=== PATIENT | female | born 1970 | race Caucasian/White ===

== ENCOUNTER → 2020-01-27 08:15 | Outpatient (BNVA) | payer MEDICAID, SELFPAY | PROVIDERS: PCP Internal Medicine; Visit Provider Surgery | DX: Z86.000 Personal history of in-situ neoplasm of breast (principal); Z90.13 Acquired absence of bilateral breasts and nipples; Z98.82 Breast implant status | CPT/HCPCS: 99212 ==

== ENCOUNTER → 2021-04-26 15:33 | Outpatient (BNVA) | payer MEDICAID, SELFPAY | PROVIDERS: PCP Internal Medicine; Referring Provider Internal Medicine; Visit Provider Surgery | DX: Z86.000 Personal history of in-situ neoplasm of breast (principal) | CPT/HCPCS: 99212 ==

== ENCOUNTER 2021-06-08 07:23 | Outpatient (REF) | payer MEDICAID, SELFPAY ==
--- NOTE | ~2021-06-08 | MR_ITS ---
EXAMINATION: MR BREAST WITHOUT CONTRAST, BILATERAL CLINICAL INFORMATION: History of right breast discomfort. History of bilateral mastectomy with implant reconstruction. COMPARISON: Breast MRI 02/20/2019, 07/16/2017 TECHNIQUE: Utilizing a 1.5T scanner and dedicated breast coil, T1 and T2-weighted sequences without fat-saturation were obtained in the sagittal plane. An axial water suppressed sequence through both breasts was obtained. A STIR sequence was also obtained through both breasts in the axial plane without suppression of the silicone signal. Finally, a sagittal STIR sequence with the suppression of silicone signal was obtained. FINDINGS: LEFT BREAST: Retropectoral silicone implant appears intact. No MR specific evidence for intracapsular or extraocular rupture. No free fluid surrounding the implant. Postsurgical changes noted in the axillary region. The soft tissues of the left chest wall on these noncontrast images are unremarkable. RIGHT BREAST: Retropectoral silicone implant is in place. T2 hyperintense material is noted along the posterior aspect of the implant within the soft tissue capsule. This is consistent with free fluid. The implant itself appears intact. The soft tissues of the right chest wall appear grossly unremarkable on these noncontrast images. Within the inferior aspect of the axilla there is a rounded lymph node measuring up to 1.07 size. This appears slightly more prominent compared to prior studies. Given the history of previous right-sided implant rupture this lymph node may contain a small amount of silicone. The cortex does not appear to be thickened. The axillary lymph nodes are essentially morphologically normal. No suspicious internal mammary lymph nodes are seen. The imaged portions of the chest and upper abdomen are grossly unremarkable. MR/MR breast BI wo con IMPRESSION: 1. Limited noncontrast study. 2. Intact implants bilaterally. Persistent fluid surrounding the right breast implants little changed compared to the most recent previous examination. ASSESSMENT: LEFT BREAST: BI-RADS 2 - Benign findings. RIGHT BREAST: BI-RADS 2 - Benign findings. RECOMMENDATIONS: Clinical follow-up..
== END 2021-06-08 07:24 | disposition home or self-care (01) ==
LOC: HO.MRI 07:23
PROVIDERS: PCP Internal Medicine; Visit Provider Surgery
DX: Z85.3 Personal history of malignant neoplasm of breast (principal); Z98.82 Breast implant status
CPT/HCPCS: 77047

== ENCOUNTER 2022-10-06 10:03 | Outpatient (AMB) | payer MEDICAID, SELFPAY ==
[2022-10-06 10:17] VITALS: BP 123/70; PULSE 94; BMI 28.4
--- NOTE | 2022-10-06 10:17 | MHC.OFFVIS ---
Intake Vital Signs 10/06/22 10:17 Height 5 ft 3.75 in Weight 164 lb 4 oz BMI 28.4 BP 123/70 Blood Pressure Location Lt brachial Position Sitting Pulse 94 Intake Visit Reasons: yearly breast exam (overdue since 06/08) Intake Note: Patient is seen in office for yearly breast exam. 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 She has a previous patient of Dr. Robles diagnosed with DCIS of the left breast after finding a lump in the upper outer aspect on self examination in 2012. She subsequently underwent BRCA testing which was negative on 11/14/2012. Patient is adopted in therefore as no information on her family history. Patient subsequently decided to proceed to a bilateral mastectomy with sentinel node biopsy followed by immediate reconstruction on 01/14/2013 (Drs. Robles/Reji). 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 A single sentinel node was removed on each side and was negative for metastatic disease. No carcinoma was identified on the right side. The patient was identified as having implants that place her at higher risk for leakage. In addition the implants have a rough surface texture that has been associated with a higher risk of aggressive lymphoma. She had a bilateral MRI performed on 07/17/2017 which demonstrated a ruptured implant on the right side and intact implant on the left. The ruptured implant was removed and replaced in September 2017. She developed an infection following the surgery which was managed with antibiotics for approximately 6 weeks. A follow-up MRI on 06/08/2021 revealed intact implants bilaterally. Persistent fluid surrounding the right breast implant is little changed compared to the most recent previous examination (BI-RADS 2 bilaterally). She is now due for a annual breast MRI. [facility] Medical History History of left breast cancer History of removal of breast implant Surgical History History of arthroplasty of right shoulder History of arthroscopy of right knee History of bilateral mastectomy (2012) History of reconstruction of both breasts (07/2013) Family History Other Adopted Social History Alcohol intake: never Patient Tobacco Use Status: Never used Tobacco Review of Systems Const All systems reviewed & are unremarkable except as noted in HPI and below Physical Exam Vital Signs: Last Vital Signs Pulse 94 10/06/22 10:17 BP 123/70 10/06/22 10:17 BMI result Body Mass Index 28.4 Const General: healthy appearing and well developed Nutritional Appearance: well nourished Orientation/consciousness: patient oriented x3 Limitations: no limitations HEENT Head: Yes normocephalic and Yes atraumatic Ears: hearing grossly normal bilaterally Neck Neck: Yes normal visual inspection, Yes no lymphadenopathy, Yes trachea midline and Yes supple Chest Other: Bilateral mastectomies with reconstruction with bilateral implants and nipple reconstruction. Palpation of the right side does reveal an area of fullness in the lower outer quadrant which appears to be above the implant the implant capsule is palpable in the upper outer quadrant. No palpable masses noted in the overlying skin or subcutaneous tissue. No enlarged lymph nodes are palpable on the right side. Left breast reveals no subcutaneous or cutaneous nodules and no enlarged lymph nodes. No areas redness or discharge. Resp Effort & Inspection: normal respiratory effort, no audible wheezes, no cough and no respiratory distress GI Inspection: Yes normal to inspection Skin General skin exam: no rashes or lesions noted Neuro General: patient oriented x3 Extrem General: Yes full ROM and Yes no clubbing, cyanosis or edema Psych Appearance: grossly normal Assessment & Plan Assessment & Plan (1) History of left breast cancer: Comment: DCIS 2012 Code(s): Z85.3 - Personal history of malignant neoplasm of breast Plan 52-year-old female patient, former patient of Dr. Robles returning for a yearly follow-up examination after undergoing bilateral mastectomies for a left breast ductal carcinoma in situ in 2012. She developed leakage from the implant on the right side and subsequently underwent removal with placement of a new implant. This was complicated by a wound infection which required prolonged antibiotics. She is currently doing well and examination today revealed no suspicious findings in either side. I recommended a follow-up MRI without contrast to evaluate the implant in surrounding tissue. She expressed understanding and agrees with the plan. She will return in 1 year for follow-up examination. She is welcome to call sooner for any new concerns. Orders: Orders MR breast BI wo/w con 10/06/22 Z85.3 - Personal history of malignant neoplasm of breast, Z98.82 - Breast implant status Coding Level of Care Code Est Pt Level 3 (90228) Diagnoses History of left breast cancer Z85.3
== END 2022-10-06 10:33 | disposition home or self-care (01) ==
PROVIDERS: PCP Internal Medicine; Visit Provider Surgery
DX: Z85.3 Personal history of malignant neoplasm of breast (principal); Z90.13 Acquired absence of bilateral breasts and nipples
CPT/HCPCS: 99213

== ENCOUNTER → 2022-10-06 10:03 | Outpatient (BNVA) | payer MEDICAID, SELFPAY | PROVIDERS: PCP Internal Medicine; Visit Provider Surgery | DX: Z86.000 Personal history of in-situ neoplasm of breast (principal); Z90.13 Acquired absence of bilateral breasts and nipples | CPT/HCPCS: 99212 ==

== ENCOUNTER 2022-12-25 13:25 | Outpatient (REF) | payer MEDICAID, SELFPAY ==
--- NOTE | ~2022-12-25 | MR_ITS ---
EXAMINATION: MR BREAST WITHOUT AND WITH CONTRAST, BILATERAL CLINICAL INFORMATION: 52-year-old status post bilateral mastectomy with silicone implant reconstruction for bilateral cancer in 2013. COMPARISON: MRIs from 06/08/2021, 02/20/2019, 02/07/2019 and 07/16/2017. TECHNIQUE: Imaging was performed with a dedicated breast coil. Prior to the administration of contrast, bilateral axial T1 and bilateral axial T2 weighted sequences were obtained. After the uneventful administration of?7 mL of Gadavist, dynamic contrast-enhanced VIBRANT series through the breasts in the axial plane were performed. Subtracted images were performed and reviewed. A delayed sagittal sequence through both breasts was acquired. Additionally, CAD post-processing, including maximum intensity projections, 3-D reconstructions and kinetic analysis, were performed an independent workstation and reviewed by the interpreting radiologist is a portion of this exam. FINDINGS: The patient's fibroglandular tissue demonstrates moderate background enhancement. LEFT BREAST: There is a retropectoral silicone implant without evidence of intracapsular or extracapsular rupture or free silicone. The surrounding breast tissue demonstrates no enhancing mass. There are postsurgical changes in the axillary region. There are no suspicious findings along the chest wall. RIGHT BREAST: There is an intact retropectoral silicone implant without evidence of intracapsular or extracapsular rupture or free silicone. Again noted is fluid surrounding the implant capsule. The amount of fluid appears to be similar to the prior study of 2021; however, this has increased over time from the original study of 2018. There are no enhancing masses in the soft tissue surrounding the implant. The axillary lymph nodes appear unchanged. There is no suspicious internal mammary chain or axillary adenopathy. Limited views of the chest and abdomen are unremarkable. MR/MR breast BI wo/w con IMPRESSION: Intact bilateral silicone implants. No evidence of intrahepatic or extracapsular rupture or free silicone. There is free fluid surrounding the right implant capsule which appears stable from the prior study although appears to have increased slightly over time. ASSESSMENT: LEFT BREAST: BI-RADS 2 - benign. RIGHT BREAST: BI-RADS 2 - benign. RECOMMENDATIONS: Clinical followup.
== END 2022-12-25 13:26 | disposition home or self-care (01) ==
LOC: HO.MRI 13:25
PROVIDERS: PCP Internal Medicine; Visit Provider Surgery
DX: Z85.3 Personal history of malignant neoplasm of breast (principal); Z98.82 Breast implant status
CPT/HCPCS: 77049; A9585

== ENCOUNTER 2023-10-18 14:18 | Outpatient (AMB) | payer MEDICAID, SELFPAY ==
--- NOTE | 2023-10-18 14:29 | A.OFFVIS_ITS ---
Vital Signs 10/18/23 14:36 Height 5 ft 3.75 in Weight 162 lb BMI 28.0 BP 141/72 H Blood Pressure Location Lt brachial Position Sitting Pulse 110 H Intake Visit Reasons: yearly breast exam Intake Note: Patient is seen in office for yearly breast exam. 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 She has a previous patient of Dr. Robles diagnosed with DCIS of the left breast after finding a lump in the upper outer aspect on self examination in 2012. She subsequently underwent BRCA testing which was negative on 11/14/2012. Patient is adopted in therefore as no information on her family history. Patient subsequently decided to proceed to a bilateral mastectomy with sentinel node biopsy followed by immediate reconstruction on 01/14/2013 (Drs. Robles/Reji). 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 A single sentinel node was removed on each side and was negative for metastatic disease. No carcinoma was identified on the right side. The patient was identified as having implants that place her at higher risk for leakage. In addition the implants have a rough surface texture that has been associated with a higher risk of aggressive lymphoma. She had a bilateral MRI performed on 07/17/2017 which demonstrated a ruptured implant on the right side and intact implant on the left. The ruptured implant was removed and replaced in September 2017. She developed an infection following the surgery which was managed with antibiotics for approximately 6 weeks. A follow-up MRI on 12/25/2022 revealed intact implants bilaterally with no evidence of leak. She was diagnosed with a possible CSF leak with persistent rhinorrhea. She denies a recent history of head trauma. She is awaiting a brain scan. She also complains of persistent hot flashes. [facility] Medical History History of removal of breast implant History of left breast cancer Surgical History History of cardiac radiofrequency ablation (RFA) History of arthroplasty of right shoulder History of arthroscopy of right knee History of reconstruction of both breasts (07/2013) History of bilateral mastectomy (2012) Family History Other Adopted Social History Alcohol intake: never Patient Tobacco Use Status: Never used Tobacco Review of Systems Const All systems reviewed & are unremarkable except as noted in HPI and below Physical Exam Vital Signs: Last Vital Signs Pulse 110 H 10/18/23 14:36 BP 141/72 H 10/18/23 14:36 BMI result Body Mass Index 28.0 Const General: healthy appearing and well developed Nutritional Appearance: well nourished Orientation/consciousness: patient oriented x3 Limitations: no limitations HEENT Head: Yes normocephalic and Yes atraumatic Ears: hearing grossly normal bilaterally Neck Neck: Yes normal visual inspection, Yes no lymphadenopathy, Yes trachea midline and Yes supple Chest Other: Bilateral mastectomies with reconstruction with bilateral implants and nipple reconstruction. Palpation of the right side does reveal an area of fullness in the lower outer quadrant which appears to be above the implant the implant capsule is palpable in the upper outer quadrant. No palpable masses noted in the overlying skin or subcutaneous tissue. No enlarged lymph nodes are palpable on the right side. Left breast reveals no subcutaneous or cutaneous nodules and no enlarged lymph nodes. No areas redness or discharge. Resp Effort & Inspection: normal respiratory effort, no audible wheezes, no cough and no respiratory distress GI Inspection: Yes normal to inspection Skin General skin exam: no rashes or lesions noted Neuro Other: Mobility Assessment:5 1. 3 meter assessment time (seconds) 2. Gait observations: Normal balance and gait General: patient oriented x3 Extrem General: Yes full ROM and Yes no clubbing, cyanosis or edema Psych Appearance: grossly normal Assessment & Plan Assessment & Plan (1) H/O bilateral breast implants: Code(s): Z98.82 - Breast implant status Category: Surgical (2) History of left breast cancer: Comment: DCIS 2012 Code(s): Z85.3 - Personal history of malignant neoplasm of breast Category: Medical Plan 53-year-old female patient, former patient of Dr. Robles returning for a yearly follow-up examination after undergoing bilateral mastectomies for a left breast ductal carcinoma in situ in 2012. She developed leakage from the implant on the right side and subsequently underwent removal with placement of a new implant. This was complicated by a wound infection which required prolonged antibiotics. She is currently doing well and examination today revealed no suspicious findings in either side. She is being worked up for a possible CSF leak. I suggested a repeat MRI in 1 year prior to her next breast examination. She is welcome to call sooner for any new concerns. Orders: Orders MR breast BI wo/w con 08/18/24 Z98.82 - Breast implant status Coding Level of Care Code Est Pt Level 3 (40018) Diagnoses H/O bilateral breast implants Z98.82 History of left breast cancer Z85.3
[2023-10-18 14:36] VITALS: BP 141/72; PULSE 110; BMI 28.0
== END 2023-10-18 14:54 | disposition home or self-care (01) ==
PROVIDERS: PCP Internal Medicine; Visit Provider Surgery
DX: Z85.3 Personal history of malignant neoplasm of breast (principal); Z98.82 Breast implant status
CPT/HCPCS: 99213

== ENCOUNTER → 2023-10-18 14:18 | Outpatient (BNVA) | payer MEDICAID, SELFPAY | PROVIDERS: PCP Internal Medicine; Visit Provider Surgery | DX: Z85.3 Personal history of malignant neoplasm of breast (principal); Z98.82 Breast implant status | CPT/HCPCS: 99212 ==

== ENCOUNTER → 2024-08-13 08:29 | Outpatient (BNV) | payer MEDICAID, SELFPAY | PROVIDERS: PCP Internal Medicine; Visit Provider Internal Medicine | DX: Z98.82 Breast implant status (principal) | CPT/HCPCS: 77049 ==

== ENCOUNTER 2024-08-13 08:39 | Outpatient (REF) | payer MEDICAID, SELFPAY ==
--- NOTE | ~2024-08-13 | MR_ITS ---
EXAMINATION: MR BREAST WITHOUT AND WITH CONTRAST, BILATERAL CLINICAL INFORMATION: Implant evaluation. Bilateral silicone implants status post bilateral mastectomy for breast cancer December 2012.. COMPARISON: Priors on PACS including breast MRI January 05 09 June 2019 09 March 2020 05 July 2017 and February 07, 2019. TECHNIQUE: MR imaging of the breast was performed using T1, T2 and fat saturated techniques. Dynamic multiphase imaging was also performed after administration of intravenous gadolinium contrast agent. Computer generated 3-D reconstruction is performed. FINDINGS: Status post bilateral mastectomy. LEFT : Intact retropectoral silicone implant without evidence of intracapsular or extracapsular rupture or free silicone. No suspicious enhancing masses or areas of nonmass enhancement. No internal mammary or axillary adenopathy. RIGHT : Intact retropectoral silicone implant without evidence of intracapsular or extracapsular implant rupture or free silicone. Again noted is fluid surrounding the implant capsule similar to prior studies dating back to 2021. No suspicious enhancing masses or areas of nonmass enhancement. No internal mammary or axillary adenopathy. Limited views of the chest and abdomen are unremarkable. MR/MR breast BI wo/w con IMPRESSION: No MR evidence of malignancy bilateral postmastectomy beds. Intact bilateral silicone implants. No evidence of intracapsular or extracapsular implant rupture. Free fluid surrounding the right implant capsule appears stable from multiple priors dating back to 2021. ASSESSMENT: LEFT BREAST: BI-RADS 2 benign. RIGHT BREAST: BI-RADS 2 benign. RECOMMENDATIONS: Clinical evaluation and follow-up. Electronically signed by: Dora Cole DO 08/15/2024 05:01 PM EDT
[2024-08-13] MEDS: gadobutroL 7.5 ML VIAL IVPUSH (09:36)
== END 2024-08-13 08:40 | disposition home or self-care (01) ==
LOC: HO.MRI 08:39
PROVIDERS: PCP Internal Medicine; Visit Provider Surgery
DX: Z98.82 Breast implant status (principal)
CPT/HCPCS: 77049; A9585

== ENCOUNTER 2024-10-21 08:46 | Outpatient (AMB) | payer MEDICAID, SELFPAY ==
--- NOTE | 2024-10-21 08:57 | A.OFFVIS_ITS ---
Vital Signs 10/21/24 08:58 Height 5 ft 3 in Weight 153 lb 6 oz BMI 27.2 BP 124/82 Blood Pressure Location Lt brachial Position Sitting Pulse 100 Intake Visit Reasons: yearly breast exam Intake Note: Patient is seen in office for yearly breast exam. 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 She has a previous patient of Dr. Robles diagnosed with DCIS of the left breast after finding a lump in the upper outer aspect on self examination in 2012. She subsequently underwent BRCA testing which was negative on 11/14/2012. Patient is adopted in therefore as no information on her family history. Patient subsequently decided to proceed to a bilateral mastectomy with sentinel node biopsy followed by immediate reconstruction on 01/14/2013 (Drs. Robles/Reji). 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 A single sentinel node was removed on each side and was negative for metastatic disease. No carcinoma was identified on the right side. The patient was identified as having implants that place her at higher risk for leakage. In addition the implants have a rough surface texture that has been associated with a higher risk of aggressive lymphoma. She had a bilateral MRI performed on 07/17/2017 which demonstrated a ruptured implant on the right side and intact implant on the left. The ruptured implant was removed and replaced in September 2017. She developed an infection following the surgery which was managed with antibiotics for approximately 6 weeks. A follow-up MRI on 12/25/2022 revealed intact implants bilaterally with no evidence of leak. She was diagnosed with a possible CSF leak with persistent rhinorrhea. She denies a recent history of head trauma. This was operated during the past year in [place] with resolution of the discharge. She reports a significant amount of pain following the surgery but currently is feeling improved. Also continues to have hot flashes but is having trouble getting approval from the insurance company for a medication that helps the symptoms. Her most recent MRI performed on 08/13/2024 revealed some residual fluid which is unchanged in the right side surrounding the implant with no evidence of suspicious changes or implant leakage (BI-RADS 2 bilaterally). [facility] Medical History History of left breast cancer Surgical History History of removal of breast implant History of cardiac radiofrequency ablation (RFA) History of arthroplasty of right shoulder History of arthroscopy of right knee History of reconstruction of both breasts (07/2013) History of bilateral mastectomy (2012) Family History Other Adopted Social History Alcohol intake: never Patient Tobacco Use Status: Never used Tobacco Review of Systems Const All systems reviewed & are unremarkable except as noted in HPI and below Physical Exam Vital Signs: Last Vital Signs Pulse 100 10/21/24 08:58 BP 124/82 10/21/24 08:58 BMI result Body Mass Index 27.2 Const General: healthy appearing and well developed Nutritional Appearance: well nourished Orientation/consciousness: patient oriented x3 Limitations: no limitations HEENT Head: Yes normocephalic and Yes atraumatic Ears: hearing grossly normal bilaterally Neck Neck: Yes normal visual inspection, Yes no lymphadenopathy, Yes trachea midline and Yes supple Chest Other: Bilateral mastectomies with reconstruction with bilateral implants and nipple reconstruction. Palpation of the right side does reveal an area of fullness in the lower outer quadrant which appears to be above the implant the implant capsule is palpable in the upper outer quadrant. No palpable masses noted in the overlying skin or subcutaneous tissue. No enlarged lymph nodes are palpable on the right side. Left breast reveals no subcutaneous or cutaneous nodules and no enlarged lymph nodes. No areas redness or discharge. Resp Effort & Inspection: normal respiratory effort, no audible wheezes, no cough and no respiratory distress GI Inspection: Yes normal to inspection Skin General skin exam: no rashes or lesions noted Neuro Other: Mobility Assessment:5 1. 3 meter assessment time (seconds) 2. Gait observations: Normal balance and gait General: patient oriented x3 Extrem General: Yes full ROM and Yes no clubbing, cyanosis or edema Psych Appearance: grossly normal Assessment & Plan Assessment & Plan (1) H/O bilateral breast implants: Code(s): Z98.82 - Breast implant status Category: Surgical (2) History of left breast cancer: Comment: DCIS 2012 Code(s): Z85.3 - Personal history of malignant neoplasm of breast Category: Medical Plan 54-year-old female patient, former patient of Dr. Robles returning for a yearly follow-up examination after undergoing bilateral mastectomies for a left breast ductal carcinoma in situ in 2012. She developed leakage from the implant on the right side and subsequently underwent removal with placement of a new implant. This was complicated by a wound infection which required prolonged antibiotics. She is currently doing well and examination today revealed no suspicious findings in either side. I suggested a repeat MRI in 1 year prior to her next breast examination. She is welcome to call sooner for any new concerns. Orders: Orders MR breast BI wo/w con 08/17/25 Z85.3 - Personal history of malignant neoplasm of breast, Z98.82 - Breast implant status Coding Level of Care Code Est Pt Level 3 (98884) Complex EM visit Add On [id number] Diagnoses H/O bilateral breast implants Z98.82 History of left breast cancer Z85.3
[2024-10-21 08:58] VITALS: BP 124/82; PULSE 100; BMI 27.2
== END 2024-10-21 09:19 | disposition home or self-care (01) ==
LOC: HO.HGS 08:47
PROVIDERS: PCP Internal Medicine; Visit Provider Surgery
DX: Z98.82 Breast implant status (principal); Z85.3 Personal history of malignant neoplasm of breast
CPT/HCPCS: 99213

== ENCOUNTER → 2024-10-21 08:46 | Outpatient (BNVA) | payer MEDICAID, SELFPAY | PROVIDERS: PCP Internal Medicine; Visit Provider Surgery | DX: Z85.3 Personal history of malignant neoplasm of breast (principal); Z98.82 Breast implant status | CPT/HCPCS: 99212 ==

== ENCOUNTER 2025-02-03 08:06 | Outpatient (AMB) | payer MEDICAID, SELFPAY ==
[2025-02-03 08:18] VITALS: BMI 26.7
--- NOTE | 2025-02-03 08:18 | A.PHYSOV ---
Vital Signs 02/03/25 08:18 Height 5 ft 3 in Weight 151 lb BMI 26.7 Intake Visit Reasons: Knees Intake Note: Patient is a 50 year old female in office today for a lumbar injection evaluation. Allergies No Known Allergies Allergy (Verified 02/03/25 08:17) HPI Comments Details: History of Present Illness The patient is a 54-year-old female presenting with chronic pain management involving her right knee, lower back pain, and lumbar radiculitis. She is a breast cancer survivor, having undergone bilateral mastectomies. Her pain management regimen includes regular use of hydrocodone during the day and morphine extended release at bedtime, which has improved her quality of life. She remains active, caring for her children and working as a pharmacy intake technician. The patient takes amitriptyline at bedtime and receives monthly intraarticular injections of ketorolac into her right knee. She has undergone lumbar epidural injections, specifically right L3 and L4 transforaminal injections, with the most recent procedure on September 05, 2024, providing excellent relief. A recent lumbar sacral spine MRI on September 24, 2022, demonstrated right foraminal disc protrusion at the L3-L4 level with mass effect on the right L3 nerve root and moderate compression of both L4 nerve roots within the neural foramina. Pain Description - Chronic pain in the right knee and lower back - Lumbar radiculitis with right foraminal disc protrusion at L3-L4 - Mass effect on the right L3 nerve root and moderate compression of both L4 nerve roots Results - MRI: Right foraminal disc protrusion at L3-L4 with mass effect on right L3 nerve root and moderate compression of both L4 nerve roots. [facility] Medical History (Updated 02/03/25 @ 12:18 by Sohan Rob DO) Lumbar radiculitis Lumbar disc herniation Knee pain, chronic Chronic pain syndrome History of left breast cancer Surgical History History of removal of breast implant History of cardiac radiofrequency ablation (RFA) History of arthroplasty of right shoulder History of arthroscopy of right knee History of reconstruction of both breasts (07/2013) History of bilateral mastectomy (2012) Family History Other Adopted Social History Alcohol intake: current Alcohol intake frequency: holidays/special occasions only Patient Tobacco Use Status: Never used Tobacco Current occupational status: employed Review of Systems Narrative Review of Systems Right knee pain, lower back pain, right leg pain, denies change in bowel bladder habits, denies fever or chills, chronic breast pain status post mastectomy, denies uncontrolled depression or suicidal ideation Physical Exam Exam Exam: Physical Exam Patient appears to be in no acute distress, appropriately conversant oriented. She was able to ambulate without antalgia. Dural tension signs were positive for right lower extremity. Neurological examination was nonfocal. Midline scar in the right knee. Tenderness with palpation over medial joint line. No crepitance, no effusion, no ligamentous instability. Patient demonstrated no upper motor neuron signs. Lumbar extension was restricted. She was able to perform heel walk and toe walk with support for balance. Vital Signs: BMI result Body Mass Index 26.7 Office Procedures AMB Knee Injection AMB Knee Injection Procedure Details: With patient in sitting position medial aspect of the right knee was prepped with Betadine. 1.5 inch 25 gauge hypodermic needle was introduced percutaneously and advanced into the joint. After negative aspiration for blood to the volume of 2 cc containing 60 mg of ketorolac was injected without resistance. Patient tolerated procedure very well without complications. Knee Injection - : Right All charges added?: Procedure code (CPT) selection complete Office Meds ketorolac 30 mg/mL injection solution Performing Provider: Sohan Rob DO Performing Location: [facility] [place] [facility] Administered by: Sohan Rob DO on 02/03/25 15:08 Dose Route Admin Location Dispensed Lot Number Expiration Date [facility] [employer] 60 mg intra-articular 2 mL [id number] [employer] Total Dispensed Waste 2 mL 0 % Assessment & Plan Assessment & Plan (1) Chronic pain syndrome: Code(s): G89.4 - Chronic pain syndrome Category: Medical (2) Knee pain, chronic: Code(s): M25.569 - Pain in unspecified knee; G89.29 - Other chronic pain Category: Medical Qualifiers: Laterality: right Qualified Code(s): M25.561 - Pain in right knee; G89.29 - Other chronic pain (3) Lumbar disc herniation: Code(s): M51.26 - Other intervertebral disc displacement, lumbar region Category: Medical (4) Lumbar radiculitis: Code(s): M54.16 - Radiculopathy, lumbar region Category: Medical Plan Pain Management - Affect: Pain impacts daily activities but patient remains active. - Analgesia: Hydrocodone during the day, morphine extended release at bedtime, and amitriptyline at bedtime. - Adverse Effects: None reported. - Activities of Daily Living: Patient continues to work and care for children. - Aberrant Drug Related Behaviors: None reported. Plan Patient was informed and verbally consented to the use of an ambient scribe for clinic note documentation during this visit. 1. Chronic Pain Involving Right Knee The patient will continue with monthly intraarticular ketorolac injections for pain management in the right knee. 2. Lower Back Pain The patient will continue with lumbar epidural injections as needed, with the last procedure providing excellent relief. 3. Lumbar Radiculitis The patient will continue with current pain management regimen, including hydrocodone and morphine, and follow up as needed. 4. Breast Cancer Survivor Status Post Bilateral Mastectomies The patient is a breast cancer survivor and continues regular follow-up care. Discussion Notes During the visit, we discussed the continuation of the current pain management regimen, including hydrocodone, morphine, and amitriptyline, as well as the need for ongoing intraarticular and epidural injections. We reviewed the recent MRI findings and confirmed the plan to maintain the current treatment approach. Patient will be scheduled for repeat right L3 and L4 transforaminal epidural steroidal injections pending insurance approval, proceed with a repeat right knee intra-articular injection with ketorolac. Risks and benefits of the procedure were discussed with the patient. Potential alternative measures were also discussed. Patient understands that the procedure is completely elective. Potential side effects associated with injectable medications were discussed. All questions were answered to the patient's satisfaction. Patient Instructions - Continue current pain medications as prescribed. - Schedule and attend monthly intraarticular injections for the right knee. - Follow up for lumbar epidural injections as needed. - Maintain regular follow-up care for breast cancer survivorship. Orders: Orders AMB Knee Injection Today G89.29 - Other chronic pain, M25.561 - Pain in right knee Medications: New morphine ER Partial fill upon request 15 mg PO BEDTIME 28 tabs 0RF Pain G89.29 - Other chronic pain, G89.4 - Chronic pain syndrome, M25.569 - Pain in unspecified knee, M51.26 - Other intervertebral disc displacement, lumbar region, M54.16 - Radiculopathy, lumbar region hydrocodone-acetaminophen 5-325 mg Partial fill upon request 1 - 2 tabs PO TID PRN 168 tabs 0RF pain G89.29 - Other chronic pain, G89.4 - Chronic pain syndrome, M25.569 - Pain in unspecified knee, M51.26 - Other intervertebral disc displacement, lumbar region, M54.16 - Radiculopathy, lumbar region Coding Level of Care Code Est Pt Level 4 (71020) Complex EM visit Add On G2211 Diagnoses Chronic pain syndrome G89.4 Chronic pain of right knee M25.561; G89.29 Laterality: right Lumbar disc herniation M51.26 Lumbar radiculitis M54.16 CPT Codes AMB Knee Injection - Hip/Bursa Injection - : Right ([id number])
== END 2025-02-03 08:44 | disposition home or self-care (01) ==
LOC: HO.HPHYS 08:07
PROVIDERS: PCP Internal Medicine; Visit Provider Physical Medicine & Rehabilitation
DX: G89.4 Chronic pain syndrome (principal); M25.561 Pain in right knee; G89.29 Other chronic pain; M51.26 Other intervertebral disc displacement, lumbar region; M54.16 Radiculopathy, lumbar region
CPT/HCPCS: 20610; 99214

== ENCOUNTER → 2025-02-03 08:06 | Outpatient (BNVA) | payer MEDICAID, SELFPAY | PROVIDERS: PCP Internal Medicine; Visit Provider Physical Medicine & Rehabilitation | DX: M25.561 Pain in right knee (principal); G89.4 Chronic pain syndrome; M51.26 Other intervertebral disc displacement, lumbar region; M54.16 Radiculopathy, lumbar region | CPT/HCPCS: 20610; 99212; J1885 ==

== ENCOUNTER 2025-02-27 07:19 | Outpatient (REF) | payer MEDICAID, SELFPAY ==
--- OUTSIDE RECORDS SUMMARY | 2025-02-27 07:30 | XMS_ITS | Data Portability ---
Author Organization [place] - [facility], Allergy Address [address] [facility] [address] [place] [id number] Care Team Providers Care Instructional Services Specialist Name Role Phone LEE ROSA Primary Care Provider Assessment Encounter Date Assessment Date Assessment LastModified by Organization Details LastModified Time 10/15/2023 10/15/2023 Patient with history of breast cancer and chronic nasal congestion presents with clear nasal discharge from the right nostril that is intermittent in nature. No prior head trauma. It has been draining for the last 2-1/2 weeks only from the right side. Last episode was 6 months ago. No sinus imaging She can demonstrate clear fluid from the right nostril. We will send the specimen for beta-2 transferrin testing and order a CT of the sinuses to rule out a skull base defect. She has no history of metastatic disease and hopefully that is not the cause. More likely there is just a weakness in the roof of the ethmoid or sphenoid sinus. Once we have all the data we can determine the appropriate course of treatment. I have asked her to observe for any signs of meningitis including fever chills stiff neck or light sensitivity. Avoid any strenuous activity including strenuous bowel movements. Suggest stool softeners. [email or web address] Not available 10/15/2023 16:05:52 02/04/2024 02/04/2024 Examination show s moderate mucoid drainage due to the packing in the right middle meatus. Debridement was performed. The medial packing was left undisturbed. She was use Afrin twice daily for 3 days and saline solution 4,5,6 times daily. Avoid nose blowing or irrigations at this point I suspect the headache and sinus pressure is just postoperative discomfort. If things persist after she is healed she may need treatment for elevated baseline CSF pressures poncho Not available 02/04/2024 16:24:58 04/16/2024 04/16/2024 1. CSF Leak s/p endoscopic repair for CSF leak by Marv Winters @ [facility] 01/2024. She is recovering well from this. Endoscopic evaluation is within expected limits today. Follow-up with Dr. Winters this Spring/ Follow-up with Praful Jama in ~6 months Continue with nasal salt water sprays 2. Nasal cyst I looked at her imaging today - I do not see any cysts inside her nasal tip. We discussed that she feels thick skin and her normal cartilage anatomy in her nasal tip. I agree with continuing with dermatologic care for her skin. If she is interested in changing the shape of her nose she would need to proceed with cosmetic surgery. She is not interested in proceeding at this time. [email or web address] Not available 04/16/2024 11:24:39 10/10/2024 10/10/2024 1. Chronic Sinusitis The patient presents with sinusitis symptoms including ear swelling, likely due to sinus inflammation. Nasal crusting was observed without infection. Afrin nasal spray and zinc lozenges were recommended, except zinc due to gastrointestinal side effects. Monitoring nasal drainage for discoloration is advised, with an agreed plan of contacting me for antibiotics if necessary. 2. CSF Leak Post-Repair Previous CSF leak repair appears successful with no current symptoms. Examination indicates post-surgical changes only. Continued monitoring without action based on current symptoms is planned. 3. 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 Follow with Derm poncho Not available 10/10/2024 10:11:39 Plan of Treatment Reminders Order Date Submit Date Provider Last Modified By Organization Details Last Modified Time Details Appointments None recorded. Lab beta-2 transferri n, qualitativ e, body fluid 2023 024 [place] [facility] (Centralized Electronic Ordering - All Locations), Patient Can Go To The Location Of Their Choice, [id number] 21:13:53 Referral None recorded. Procedures None recorded. Surgeries None recorded. Imaging CT, maxillofac ial, w/o contrast - right sided presumed CSF leak 2023 024 [facility] (Imaging), [address] [facility], [place], [address], 16:26:54 Medication Orders None recorded. Patient TargetsNo targets recorded. Patient Instructions Encounter Date Encounter Id Patient Instructions Last Modified By Organization Details Last Modified Time 10/10/2024 [id number] Please note: Parts of this encounter note have been generated by AI based on audio conversation. Patient consent was required prior to utilizing this technology. Content review was required prior to finalizing the note. [email or web address] Not available 10/10/2024 08:56:15 Reason for Referral None Reported. Results Created Date Observation Date Name Description Value Unit Range Abnormal Flag Note LastModifiedBy Organization Detail LastModifiedTime 10/15/19 24 10/19/[address] PROBL EM request problem Commen t This is an amend ed/co rrect ed repor t. Not Available [facility] ([facility]) [address] [facility], [place], [address], 10/23/2023 21:13:54 10/15/19 24 10/23/2023 BETA- 2 TRANS TAMIE N beta-2 transferrin See below: abnormal Detec raffaele Rare allel ic varia nts of trans tamie n may cause false posit amelia resul ts in the detec tion of cereb rospi nal fluid leaka ge. Patie nts with rare conge nital disor ders of glyco sylat ion show incre ased keagan ntrat ions of an asial o isofo rm with beta 2 trans tamie n mobil ity. Patie nts with liver damag e (cirr hosis ), neuro psych iatri c disea ses and recta l cance r can also show incre ased keagan ntrat ions of this isofo rm. If clini carroll indic ated, simul taneo us erick sis of serum and CSF from the same indiv idual is sugge sted to rule out these rare false posit amelia resul ts. INTER PRETI VE INFOR MATIO N: Beta- 2 Trans tamie n Detec tion of a beta- 2 trans tamie n band by IGNACIO is diagn ostic for the prese nce of cereb rospi nal fluid (CSF) . This test is usefu l in the diffe renti al diagn osis for CSF otorr hea or CSF rhino rrhea . Beta- 2 trans tamie n is not detec raffaele by this metho dolog y in meg l serum , tears , saliv a, sputu m, nasal , or aural fluid . This test was devel oped and its perfo rmanc e [facility] st[facility] deter mined by [facility] atori es. It has not been clear ed or appro dacia by the [place] Food and Drug Admin istra tion. This test was perfo rmed in a CLIA certi fied labor atory and is inten ded for clini destiney purpo ses. REFER ENCE RANGE : None Detec raffaele Not Available [facility] ([facility]) [address] [place], [address], 10/23/2023 21:13:53 10/21/19 24 10/26/2023 BETA- 2 TRANS TAMIE N beta-2 transferrin See below: abnormal Detec raffaele Rare allel ic varia nts of trans tamie n may cause false posit amelia resul ts in the detec tion of cereb rospi nal fluid leaka ge. Patie nts with rare conge nital disor ders of glyco sylat ion show incre ased keagan ntrat ions of an asial o isofo rm with beta 2 trans tamie n mobil ity. Patie nts with liver damag e (cirr hosis ), neuro psych iatri c disea ses and recta l cance r can also show incre ased keagan ntrat ions of this isofo rm. If clini carroll indic ated, simul taneo us erick sis of serum and CSF from the same indiv idual is sugge sted to rule out these rare false posit amelia resul ts. INTER PRETI VE INFOR MATIO N: Beta- 2 Trans tamie n Detec tion of a beta- 2 trans tamie n band by IGNACIO is diagn ostic for the prese nce of cereb rospi nal fluid (CSF) . This test is usefu l in the diffe renti al diagn osis for CSF otorr hea or CSF rhino rrhea . Beta- 2 trans tamie n is not detec raffaele by this metho dolog y in meg l serum , tears , saliv a, sputu m, nasal , or aural fluid . This test was devel oped and its perfo rmanc e [facility]ul cteri stics deter mined by [facility]. It has not been clear ed or appro dacia by the US Food and Drug Admin istra tion. This test was perfo rmed in a CLIA certi fied labor atory and is inten ded for clini destiney purpo ses. REFER ENCE RANGE : None Detec raffaele Not Available [facility] ([facility]) [address] [place], [address], 10/26/2023 13:29:59 10/25/19 24 10/25/2023 CT, maxil lofac ial, w/o contr ast No observ ation record ed. [facility] [address] [facility] [address], [place], [address], 10/26/2023 09:14:22 10/26/19 24 10/25/2023 CT, maxil lofac ial, w/o contr ast No observ ation record ed. [facility] [address] [place], [address], 10/26/2023 12:54:56 Result Notes None recorded. Problems Name Problem SNOMED Code Status Onset Date Resolution Date Notes Provider Name and Address Organization Details Recorded Time Nasal congestion 45910499 Active 2023 PRAFUL YEPEZ MD [address] [address], [facility] [place], [address], [facility] - [facility] 15:57:31 Cerebrospinal fluid rhinorrhea 42625824 Active 2023 PRAFUL YEPEZ MD [address] [address], [place], [address], [facility] - [facility] 4 15:57:36 Cerebrospinal fluid leak 521410991 Active 2024 JULIO TONG MD [address] [address], [place], [address], [facility] - [facility] 5 11:23:32 Cyst of nasal sinus 26789091 Active 2024 JULIO TONG MD [address] [address], [place], [address], [facility] - [facility] 5 11:23:37 Acute upper respiratory infection 71645841 Active 2024 PRAFUL YEPEZ MD [address] [place] [address],[address] [address], [place], [address], [facility] - [facility] 5 08:55:10 Chronic rhinitis 53743904 Active 2024 PRAFUL YEPEZ MD [address] [place] [address],[place] [address], [place], [address], [facility] - [facility] 5 08:55:14 Chronic sinusitis 23117171 Active 2024 PRAFUL YEPEZ MD [address] [address], [place], [address], [facility] - [facility] 14:52:56 Problem Notes None recorded. Procedures Surgical History Date Name Laterality Status Provider Name and Address Organization Details Recorded Time 5 JMSNasal/Sinus Endoscopy-PRIO R surgical cavities completed PRAFUL JAMA MD [address] [facility] [address], [place], [address], [facility] - [facility] 10/10/2024 08:54:59 5 Nasal Endoscopy completed JULIO TONG MD [address] [facility] [address], [address], [facility] - [facility] 04/16/2024 11:21:06 4 JMSNasal/Sinus Endoscopy-DEBR IDEMENT completed PRAFUL JAMA MD [address] [place] [address], [phone], [place] - [facility] 02/04/2024 16:24:31 Imaging Results None recorded. Procedure Notes None recorded. Medical Equipment None Reported. Allergies No known drug allergies Medications Name Sig Start Date Stop Date Status Note LastModified by Organization Details LastModified Time acetaminoph en 325 mg tablet active Not Available Not Available Not Available prednisone 10 mg tablet active Not Available Not Available Not Available ibuprofen 800 mg tablet TAKE 1 TABLET BY MOUTH THREE TIMES DAILY active Not Available Not Available No t Available metoprolol succinate ER 50 mg tablet,exte nded release 24 hr TAKE 1 TABLET BY MOUTH DAILY 02/03 completed Not Available Not Available Not Available hydrocodone 5 mg-acetamin ophen 325 mg tablet TAKE 1 TO 2 TABLETS BY MOUTH THREE TIMES DAILY NEEDED X 28 DAYS active Not Available Not Available No t Available prednisone 20 mg tablet TAKE 2 TABLETS BY MOUTH FOR 3 DAYS THEN TAKE 1 TABLET BY MOUTH FOR 3 DAYS 02/03 completed Not Available Not Available Not Available peg-electro lyte solution 420 gram oral solution 02/03 completed Not Available Not Available Not Available Deep Sea Nasal 0.65 % spray aerosol INSTIL 2 SPRAYS INTRANASA LLY FIVE TIMES A DAY FOR 10 DAYS active Not Available Not Available No t Available amitriptyli ne 25 mg tablet TAKE 1 TO 3 TABLETS BY MOUTH EVERY NIGHT active Not Available Not Available No t Available benzonatate 100 mg capsule TAKE 1 CAPSULE BY MOUTH FOUR TIMES DAILY FOR 15 DAYS 10/10 completed Not Available Not Available Not Available prednisone 50 mg tablet TAKE 1 TABLET BY MOUTH EVERY DAY FOR 7 DAYS 04/16 completed Not Available Not Available Not Available docusate sodium 100 mg capsule active Not Available Not Available N ot Available morphine ER 15 mg tablet,exte nded release TAKE 1 TABLET BY MOUTH EVERY NIGHT active Not Available Not Available No t Available doxycycline hyclate 100 mg tablet TAKE 1 TABLET BY MOUTH TWICE DAILY active Not Available Not Available No t Available ipratropium bromide 21 mcg (0.03 %) nasal spray USE 2 SPRAYS IN EACH NOSTRIL TWICE DAILY active Not Available Not Available No t Available amoxicillin 875 mg-potassiu m clavulanate 125 mg tablet TAKE 1 TABLET BY MOUTH TWICE DAILY 02/03 completed Not Available Not Available Not Available oxymetazoli ne 0.05 % nasal spray Yeoman 2 sprays twice a day by intranasa l route for 3 days. 04/13 completed Not Available Not Available Not Available rosuvastati n 20 mg tablet TAKE 1 TABLET BY MOUTH DAILY 02/03 completed Not Available Not Available Not Available rosuvastati n 40 mg tablet TAKE 1 TABLET BY MOUTH DAILY active Not Available Not Available No t Available metoprolol tartrate 25 mg tablet TAKE 1 TABLET BY MOUTH THREE TIMES DAILY NEEDED FOR PALPITATI ONS 02/03 completed Not Available Not Available Not Available DOK 100 mg tablet TAKE 1-2 TABLET BY MOUTH EVERY DAY NEEDED active Not Available Not Available No t Available Vitals Date Recorded Body height Body weight Provider Name and Address Organization Details Last Updated DateTime 04/16/2024 160.02 cm 57327.82 g Elizabeth Gregory [place] - [facility] 04/16/2024 09:24:54 Date Recorded Body height Provider Name an d Address Organization Details Last Updated DateTime 10/10/2024 160.02 cm JAKE KIERAN [place] - [facility] 10/10/2024 08:38:35 Date Recorded Body height Body mass index (BMI) Body weight Provider Name and Address Organization Details Last Updated DateTime 10/15/2023 160.02 cm 27.5 kg/m2 25634.82 g Solomon Olmedo [place] - [facility] 10/15/2023 15:12:10 Date Recorded Body height Body mass index (BMI) Body weight Provider Name and Address Organization Details Last Updated DateTime 02/04/2024 160.02 cm 27.5 kg/m2 10787.82 g Elizabeth Gregory [place] - [facility] 02/04/2024 15:48:24 Social History None recorded. Functional Status None recorded. Mental Status None recorded. Family History Nothing Reported. Medical History Condition Response Tonsil Infections N Emphysema N Glaucoma N Depression N COPD N Nasal or Sinus Problems Y Anesthesia Complications N Arthritis N Hearing Loss N Cancer Y Stroke N High Cholesterol Y Liver Disease N Headaches N Fibromyalgia N Speech Delay N Kidney Disease N Allergies/Hayfever N Heart Problems Y Anxiety N Migraines N Thyroid Problems N Developmental Delay N Anemia N Immune System Disorder N Heart Attack (AR) N Other Skin Condition N Diabetes N Rhinitis Y Bleeding Disorder N Food Allergy N Hyperlipidemia N Dementia N Nasal polyps N Asthma N Sleep Disorder N GERD/Reflux N Hypertension N Gynecological HistoryNo gynecological history recorded. Obstetrics History GPAL:G 0 P 0 0 0 0 Past Encounters Encounter ID Performer Location Encounter Start Date Encounter Closed Date Diagnosis/Indication Diagnosis SNOMED-CT Code Diagnosis ICD10 Code Diagnosis IMO Codes Diagnosis Note [id number] PRAFUL NUÑEZ MD [facility] [address] [address] 10/15/2023 14:48:51 10/15/2023 16:12:07 Nasal congestion 95793564 R09.81 Cerebrospi nal fluid rhinorrhea 00556393 G96.00 [id number] PRAFLU NUÑEZ MD [facility] [address] [address] 02/04/2024 15:40:34 02/04/2024 16:31:50 Cerebrospinal fluid rhinorrhea 87909131 G96.00 [id number] JULIO TONG MD [facility] [address] [address] 04/16/2024 09:21:59 04/16/2024 10:05:36 Cerebrospinal fluid leak 098790069 G96.00 Cyst of nasal sinus 8522 5000 J34.1 [id number] PRAFUL NUÑEZ MD [facility] [address] [address] 10/10/2024 08:36:12 10/10/2024 08:56:44 Acute upper respiratory infection 88039171 J06.9 25634 Chronic rhinitis 5519534 6 J31.0 2545 Health Concerns Section Related Observation LastModified by Organization Detai ls LastModified Time None Recorded Concern Status LastModified by Organization Details LastModified Time None Recorded Advance Directives Directive None Recorded Payers Insurance Date Sequence Insurance Name Policy Number Policy Badillo Covered Member ID Badillo Member ID Guarantor Name 10/10/2024 1 [place] [facility] Ailyn Berg [id number] Ailyn Flag [place] Notes Date Note Type Note Provider Name and Address Organization Details Recorded Time 10/15/2023 text/html Hx of breast cancer, nasal congestion, septal deviation, nasal drip and clear fluid draining from right nostril okay to stop the drip. Chlorpheniramine/ps eudoephedrine and Atrovent have helped the congestion but not really the drip No asthma PRAFUL JAMA MD [address] [facility],[address], [address], [facility] - [facility] 10/15/2023 16:08:08 02/04/2024 text/html Patient 1 week status post endoscopic repair of the cribriform CSF leak by Dr. Winters. She has headache and facial pressure. PRAFUL JAMA MD [address] [facility] [address], [place], [address], [facility] 02/04/2024 16:25:56 04/16/2024 text/html ROS as noted in the HPI 54yo woman who presents today for evaluation of concern for a nasal tip cyst. 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 Winters @ [facility] 01/2024. She has had good effect after that repair. She reports feeling like her nasal tip is bulbous and that the swelling comes and goes. She reports being told that there was a cyst inside her nose. She is wondering if there is anything surgically that can be done for the tip of her nose. She uses dermatologic treatments on the tip of her nose to help with the swelling and she finds this helps her skin texture. She has never had an infection there. Imaging was reviewed and interpreted independently today. I do not identify anything within the nasal tip. There is a cyst within her left maxillary sinus. JULIO TONG MD [address] [facility] [address] [address], [place], [address], [facility] 04/16/2024 11:25:02 10/10/2024 text/html ROS as noted in the HPI The patient is a 54-year-old female presenting with chronic sinusitis and nasal tip concerns. She underwent surgical repair for a CSF leak eight months ago and reports no leakage recurrence since. The patient reports bilateral ear swelling noted by her primary care provider and concerns over a nasal tip lesion previously identified by Dr. Winters. Examination by Dr. Tong did not confirm a cyst. The patient denies current infections and is seeing dermatology for further eval PRAFUL JAMA MD [address] [place] [address], [phone] - [facility] 10/10/2024 10:12:33 OBGyn Episode No OBEpisode recorded.
== END 2025-02-27 07:20 | disposition home or self-care (01) ==
LOC: HO.HPHYSR 07:19
PROVIDERS: PCP Internal Medicine; Visit Provider Physical Medicine & Rehabilitation
DX: M54.16 Radiculopathy, lumbar region (principal)
CPT/HCPCS: 64483; 64484; J2003; J3301; Q9967

== ENCOUNTER 2025-02-27 07:19 | Outpatient (AMB) | payer MEDICAID, SELFPAY ==
[2025-02-27 07:20] VITALS: TEMP 36.7; BMI 26.2
--- NOTE | 2025-02-27 07:20 | A.PHYSOV ---
Vital Signs 02/27/25 07:20 Height 5 ft 3 in Weight 148 lb BMI 26.2 Temp 98.1 F Intake Visit Reasons: Right Lumbar Transforaminal Epidural Inj L3 & L4 Intake Note: Patient is a 54 year old female in office today for a Right L3 and L4 Transforaminal Epidural Injection. 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 Allergies No Known Allergies Allergy (Verified 02/27/25 07:21) [facility] Medical History (Updated 02/03/25 @ 12:18 by Sohan Rob DO) Lumbar radiculitis Lumbar disc herniation Knee pain, chronic Chronic pain syndrome History of left breast cancer Surgical History History of removal of breast implant History of cardiac radiofrequency ablation (RFA) History of arthroplasty of right shoulder History of arthroscopy of right knee History of reconstruction of both breasts (07/2013) History of bilateral mastectomy (2012) Family History Other Adopted Social History Alcohol intake: current Alcohol intake frequency: holidays/special occasions only Patient Tobacco Use Status: Never used Tobacco Current occupational status: employed Physical Exam Vital Signs: BMI result Body Mass Index 26.2 Office Procedures Procedure Details: Procedure performed: Right L3 and L4 transforaminal epidural steroid injection Preop diagnosis: Lumbar radiculitis Postop diagnosis: The same Anesthesia: Local After informed consent was obtained, patient was placed on the procedure table in a prone position. Skin over lumbosacral area was prepped and draped in usual sterile manner. Right L3 pedicle was visualized utilizing fluoroscopy. 3.5 inch 22 gauge spinal needle was introduced percutaneously and advanced towards the pedicle at about 6 o'clock position. Once level of neural foramina was reached, needle placement was verified utilizing 3 cc of Omnipaque contrast solution. Excellent flow through the neural foramina and epidural spread was identified without evidence of vascular uptake. Total volume of 6 cc containing 2 cc of 1% lidocaine, 40 mg of triamcinolone and normal saline solution were injected after negative aspiration for blood and cerebrospinal fluid. Identical procedure was repeated at L4 level. Radiation exposure was documented in the chart. Lumbar transforaminal Epidural Steroid Inj- use with FL Gd: 72134 - Single and 72452 - Each Additional Procedure code (CPT) selection complete Office Meds Kenalog 40 mg/mL suspension for injection Performing Provider: Sohan Rob DO Performing Location: [facility] Administered by: Sohan Rob DO on 02/27/25 07:23 Dose Route Admin Location Dispensed Lot Number Expiration Date [facility] [employer] 80 mg epidural 2 mL [id number] [employer] Total Dispensed Waste 2 mL 0 % lidocaine (PF) 10 mg/mL (1 %) injection solution Performing Provider: Sohan Rob DO Performing Location: [facility] Administered by: Sohan Rob DO on 02/27/25 07:23 Dose Route Admin Location Dispensed Lot Number Expiration Date [facility] [employer] 50 mg epidural 5 mL [id number] [employer] Total Dispensed Waste 5 mL 0 % Omnipaque 300 300 mg iodine/mL intravenous solution Performing Provider: Sohan Rob DO Performing Location: [facility] Administered by: Sohan Rob DO on 02/27/25 07:23 Dose Route Admin Location Dispensed Lot Number Expiration Date [facility] [employer]per 3 mL epidural 10 mL [id number] [employer] Total Dispensed Waste 10 mL 70 % Assessment & Plan Assessment & Plan (1) Lumbar radiculitis: Code(s): M54.16 - Radiculopathy, lumbar region Category: Medical Plan: Injection Plan Injection Orders: Orders [place] Gd Lumbar Transforaminal In Today M54.16 - Radiculopathy, lumbar region AMB Lumbar transforaminal Epidural Steroid Injection Today M54.16 - Radiculopathy, lumbar region Coding Level of Care Code Procedure Only Diagnoses Lumbar radiculitis M54.16 CPT Codes Lumbar transforaminal Epidural Steroid I - CPT TRANSFORM: 00296 - Single ([id number]) Lumbar transforaminal Epidural Steroid I - CPT TRANSFORM: 93620 - Single ([id number])
== END 2025-02-27 07:59 | disposition home or self-care (01) ==
LOC: HO.HPHYS 07:19
PROVIDERS: PCP Internal Medicine; Visit Provider Physical Medicine & Rehabilitation
DX: M54.16 Radiculopathy, lumbar region (principal)
CPT/HCPCS: 64483; 64484

== ENCOUNTER 2025-03-03 08:07 | Outpatient (AMB) | payer MEDICAID, SELFPAY ==
[2025-03-03 08:08] VITALS: BMI 26.2
--- NOTE | 2025-03-03 08:08 | A.PHYSOV ---
Vital Signs 03/03/25 08:08 Height 5 ft 3 in Weight 148 lb BMI 26.2 Intake Visit Reasons: Knees Intake Note: Patient i a 54 year old female in office today for a medication management visit and right knee injection. Machine Stuffer Required: No Allergies No Known Allergies Allergy (Verified 03/03/25 08:09) [facility] Medical History Lumbar radiculitis Lumbar disc herniation Knee pain, chronic Chronic pain syndrome History of left breast cancer Surgical History History of removal of breast implant History of cardiac radiofrequency ablation (RFA) History of arthroplasty of right shoulder History of arthroscopy of right knee History of reconstruction of both breasts (07/2013) History of bilateral mastectomy (2012) Family History Other Adopted Social History Alcohol intake: current Alcohol intake frequency: holidays/special occasions only Patient Tobacco Use Status: Never used Tobacco Current occupational status: employed Physical Exam Vital Signs: BMI result Body Mass Index 26.2 Office Procedures AMB Knee Injection AMB Knee Injection Procedure Details: With patient in sitting position medial aspect of the right knee was prepped with Betadine. 1.5 inch 25 gauge hypodermic needle was introduced percutaneously and advanced into the joint. After negative aspiration for blood to the volume of 2 cc containing 60 mg of ketorolac was injected without resistance. Knee Injection - : Right All charges added?: Procedure code (CPT) selection complete Office Meds Kenalog 40 mg/mL suspension for injection Performing Provider: Sohan Rob DO Performing Location: [facility] Documented (not given) by: Sohan Rob DO on 03/03/25 08:25 Reason Not Given: Not Medically Necessary ketorolac 60 mg/2 mL intramuscular solution Performing Provider: Sohan Rob DO Performing Location: [facility] Administered by: Sohan Rob DO on 03/03/25 08:25 Dose Route Admin Location Dispensed Lot Number Expiration Date ND Marketing Developer 60 mg intra-articular 2 mL 75789-559-90 [employer] Total Dispensed Waste 2 mL 0 % Assessment & Plan Assessment & Plan (1) Knee pain, chronic: Code(s): M25.569 - Pain in unspecified knee; G89.29 - Other chronic pain Category: Medical Qualifiers: Laterality: right Qualified Code(s): M25.561 - Pain in right knee; G89.29 - Other chronic pain Plan: Knee injection Plan Knee injection Orders: Orders AMB Knee Injection Today G89.29 - Other chronic pain, M25.561 - Pain in right knee Medications: Changed From hydrocodone-acetaminophen 5-325 mg Partial fill upon request 1 - 2 tabs PO TID PRN 168 tabs 0RF pain G89.29 - Other chronic pain, G89.4 - Chronic pain syndrome, M25.569 - Pain in unspecified knee, M51.26 - Other intervertebral disc displacement, lumbar region, M54.16 - Radiculopathy, lumbar region To hydrocodone-acetaminophen 5-325 mg Partial fill upon request 1 - 2 tabs PO TID PRN 168 tabs 0RF pain 28 days G89.29 - Other chronic pain, G89.4 - Chronic pain syndrome, M25.569 - Pain in unspecified knee, M51.26 - Other intervertebral disc displacement, lumbar region, M54.16 - Radiculopathy, lumbar region From morphine ER Partial fill upon request 15 mg PO BEDTIME 28 tabs 0RF Pain G89.29 - Other chronic pain, G89.4 - Chronic pain syndrome, M25.569 - Pain in unspecified knee, M51.26 - Other intervertebral disc displacement, lumbar region, M54.16 - Radiculopathy, lumbar region To morphine ER Partial fill upon request 15 mg PO BEDTIME 28 tabs 0RF Pain 28 days G89.29 - Other chronic pain, G89.4 - Chronic pain syndrome, M25.569 - Pain in unspecified knee, M51.26 - Other intervertebral disc displacement, lumbar region, M54.16 - Radiculopathy, lumbar region Coding Level of Care Code Procedure Only Diagnoses Chronic pain of right knee M25.561; G89.29 Laterality: right CPT Codes AMB Knee Injection - Hip/Bursa Injection - : Right ([id number])
--- OUTSIDE RECORDS SUMMARY | 2025-03-03 08:21 | XMS_ITS | Data Portability ---
Author Organization [place] - [facility], Allergy Address [address] [facility] [address] [place] [id number] Care Team Providers Care Securities And Real Estate Director Name Role Phone LEE ROSA Primary Care [...] for CSF leak by Marv Winters @ [facility] 01/2024. She is recovering well from this. [...] Go To The Location Of Their Choice, [address] 21:13:53 Referral None recorded. Procedures None recorded. Surgeries None recorded. Imaging CT, maxillofac ial, w/o contrast - right sided presumed CSF leak 2023 024 [facility] (Imaging), [address] [facility], [place], [address], 16:26:54 Medication Orders None recorded. Patient TargetsNo targets recorded. Patient Instructions Encounter Date Encounter Id Patient Instructions Last Modified By Organization Details Last Modified Time 10/10/2024 [id number] Please note: Parts of this encounter note [...] rrect ed repor t. Not Available [facility] ([facility]) [address] [facility], [place], [address], 10/23/2023 21:13:54 10/15/19 24 10/23/2023 BETA- 2 [...] jean paul cteri stics deter mined by [facility]. It has not been clear ed or appro dacia by the [place] Food and Drug Admin istra tion. This test was perfo rmed in a CLIA certi fied labor atory and is inten ded for clini destiney purpo ses. REFER ENCE RANGE : None Detec raffaele Not Available [facility] ([facility]) [address] [place], [address], 10/23/2023 21:13:53 10/21/19 24 10/26/2023 BETA- 2 [...] None Detec raffaele Not Available [facility] ([facility]) [address] [place], [address], 10/26/2023 13:29:59 10/25/19 24 10/25/2023 CT, maxil lofac ial, w/o contr ast No observ ation record ed. [facility] [address] [facility] [address], [place], [address], 10/26/2023 09:14:22 10/26/19 24 10/25/2023 CT, maxil lofac ial, w/o contr ast No observ ation record ed. [facility] [address] [place], [address], 10/26/2023 12:54:56 Result Notes None recorded. Problems Name Problem SNOMED Code Status Onset Date Resolution Date Notes Provider Name and Address Organization Details Recorded Time Nasal congestion 70674465 Active 2023 PRAFUL YEPEZ MD [address] [address], [facility] [place], [address], [facility] 15:57:31 Cerebrospinal fluid rhinorrhea 59359179 Active 2023 PRAFUL YEPEZ MD [address] [address], [place], [address], [facility] 4 15:57:36 Cerebrospinal fluid leak 110563827 Active 2024 JULIO TONG MD [address] [address], [place], [address], [facility] 5 11:23:32 Cyst of nasal sinus 92117268 Active 2024 JULIO TONG MD [address] [address], [place], [address], [facility] 5 11:23:37 Acute upper respiratory infection 60247195 Active 2024 PRAFUL YEPEZ MD [address] [place] [address],[address] [address], [place], [address], [facility] 5 08:55:10 Chronic rhinitis 13254250 Active 2024 PRAFUL YEPEZ MD [address] [place] [address],[address] [address], [place], [address], [facility] 5 08:55:14 Chronic sinusitis 26718379 Active 2024 PRAFUL YEPEZ MD [address] [address], [place], [address], [facility] 14:52:56 Problem Notes None recorded. Procedures Surgical History Date Name Laterality Status Provider Name and Address Organization Details Recorded Time 5 JMSNasal/Sinus Endoscopy-PRIO R surgical cavities completed PRAFUL JAMA MD [address] [facility] [address], [place], [address], [facility] 10/10/2024 08:54:59 5 Nasal Endoscopy completed JULIO TONG MD [address] [facility] [place],[address], [address], [facility] 04/16/2024 11:21:06 4 JMSNasal/Sinus Endoscopy-DEBR IDEMENT completed PRAFUL JAMA MD [address] [place] [address], [address], [place] - [facility] 02/04/2024 16:24:31 Imaging Results None recorded. [...] Available oxymetazoli ne 0.05 % nasal spray Foley 2 sprays twice a day by intranasa [...] Details Last Updated DateTime 04/16/2024 160.02 cm 35051.82 g Elizabeth Gregory [place] - [facility] 04/16/2024 09:24:54 Date Recorded Body height Provider Name an d Address Organization Details Last Updated DateTime 10/10/2024 160.02 cm JAKE KIERAN [place] - [facility] 10/10/2024 08:38:35 Date Recorded Body height Body mass index (BMI) Body weight Provider Name and Address Organization Details Last Updated DateTime 10/15/2023 160.02 cm 27.5 kg/m2 81427.82 g Solomon Olmedo [place] - [facility] 10/15/2023 15:12:10 Date Recorded Body height Body mass index (BMI) Body weight Provider Name and Address Organization Details Last Updated DateTime 02/04/2024 160.02 cm 27.5 kg/m2 11223.82 g Elizabeth Gregory [place] - [facility] 02/04/2024 15:48:24 Social History None recorded. Functional Status None recorded. Mental Status None recorded. Family History Nothing Reported. Medical History Condition Response Allergies/Hayfever N Heart Problems Y Anxiety N Tonsil Infections N Emphysema N Migraines N Thyroid Problems N Glaucoma N Depression N COPD N Developmental Delay N Nasal or Sinus Problems Y Anemia N Immune System Disorder N Anesthesia Complications N Heart Attack ([place]) N Other Skin Condition N Diabetes N Rhinitis Y Bleeding Disorder N Food Allergy N Arthritis N Hearing Loss N Hyperlipidemia N Cancer Y Stroke N Dementia N Nasal polyps N Asthma N High Cholesterol Y Sleep Disorder N GERD/Reflux N Liver Disease N Headaches N Fibromyalgia N Hypertension N Speech Delay N Kidney Disease N Gynecological HistoryNo gynecological history recorded. Obstetrics History GPAL:G 0 P 0 0 0 0 Past Encounters Encounter ID Performer Location Encounter Start Date Encounter Closed Date Diagnosis/Indication Diagnosis SNOMED-CT Code Diagnosis ICD10 Code Diagnosis IMO Codes Diagnosis Note [id number] PRAFUL NUÑEZ MD [facility] [address] [address] 10/15/2023 14:48:51 10/15/2023 16:12:07 Nasal congestion 06935363 R09.81 Cerebrospi nal fluid rhinorrhea 44668550 G96.00 [id number] PRAFUL NUÑEZ MD [facility] [address] [address] 02/04/2024 15:40:34 02/04/2024 16:31:50 Cerebrospinal fluid rhinorrhea 41635184 G96.00 [id number] JULIO TONG MD [facility] [address] [address] 04/16/2024 09:21:59 04/16/2024 10:05:36 Cerebrospinal fluid leak 705605700 G96.00 Cyst of nasal sinus 8522 5000 J34.1 [id number] PRAFUL NUÑEZ MD [facility] [address] [address] 10/10/2024 08:36:12 10/10/2024 08:56:44 Acute upper respiratory infection 85408487 J06.9 71193 Chronic rhinitis 8476419 6 J31.0 2545 Health Concerns Section Related Observation LastModified by Organization Detai ls LastModified Time None Recorded Concern Status LastModified by Organization Details LastModified Time None Recorded Advance Directives Directive None Recorded Payers Insurance Date Sequence Insurance Name Policy Number Policy Badillo Covered Member ID Badillo Member ID Guarantor Name 10/10/2024 1 [place] [facility] Ailyn Berg [id number] Ailyn [place] Notes Date Note Type Note Provider Name and Address Organization Details Recorded Time 10/15/2023 text/html Hx of breast cancer, nasal congestion, septal deviation, nasal drip and clear fluid draining from right nostril okay to stop the drip. Chlorpheniramine/ps eudoephedrine and Atrovent have helped the congestion but not really the drip No asthma PRAFUL JAMA MD [address] [facility],[address], [address], 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 Winters. She has headache and facial pressure. PRAFUL JAMA MD [address] [facility] [place],[facility] [address], [place], [address], [facility] 02/04/2024 16:25:56 04/16/2024 text/html ROS as noted in the HPI 54yo woman who presents today for evaluation of concern for a nasal tip cyst. 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 Winters @ [facility] 01/2024. She has had good effect after [...] left maxillary sinus. JULIO TONG MD [address] [facility] [place] [address], [place], [address], [facility] 04/16/2024 11:25:02 10/10/2024 text/html ROS as [...] dermatology for further eval PRAFUL JAMA MD [address] [place] [address], [address] 10/10/2024 10:12:33 OBGyn Episode No OBEpisode recorded.
== END 2025-03-03 08:22 | disposition home or self-care (01) ==
LOC: HO.HPHYS 08:07
PROVIDERS: PCP Internal Medicine; Visit Provider Physical Medicine & Rehabilitation
DX: M25.561 Pain in right knee (principal); G89.29 Other chronic pain
CPT/HCPCS: 20610

== ENCOUNTER → 2025-03-03 08:07 | Outpatient (BNVA) | payer MEDICAID, SELFPAY | PROVIDERS: PCP Internal Medicine; Visit Provider Physical Medicine & Rehabilitation | DX: M25.561 Pain in right knee (principal); G89.4 Chronic pain syndrome; M51.16 Intervertebral disc disorders with radiculopathy, lumbar region | CPT/HCPCS: 20610; J1885 ==